=== PATIENT | female | born 1995 | race African-American/Black ===

== ENCOUNTER 2019-11-19 06:28 | Emergency (ER) | payer OTHER ==
[2019-11-19 07:25] LABS: ABSOLUTE EOSINOPHILS # (AUTO) 0.1 10^3/uL (0.0-0.6); ABSOLUTE MONOCYTES (AUTO) 0.5 10^3/uL (0.1-1.4); ABSOLUTE NEUT (AUTO) 5.5 10^3/uL (1.7-8.2); BASOPHILS % (AUTO) 0.3 % (0-2); EOSINOPHILS % (AUTO) 1.8 % (0-6); HEMATOCRIT 34.7 % (36.0-47.0); HEMOGLOBIN 11.6 g/dL (12.0-15.5); LYMPHOCYTES % (AUTO) 24.5 % (13-45); MEAN CORPUSCULAR HGB CONC 33.5 g/dL (32.0-36.0); MEAN CORPUSCULAR VOLUME 90 fl (80-97); MONOCYTES % (AUTO) 6.1 % (3-13); PLATELET COUNT 268 10^3/uL (150-450); RED BLOOD COUNT 3.88 10^6/uL (3.72-5.28); RED CELL DISTRIBUTION WIDTH 12.9 % (11.5-14.0); SEGMENTED NEUTROPHILS % (AUTO) 67.3 % (42-78); TOTAL CELLS COUNTED % (AUTO) 100 %; WHITE BLOOD COUNT 8.1 10^3/uL (4.0-10.5)
[2019-11-19 07:54] LABS: ALBUMIN 4.6 g/dL (3.5-5.0); ALKALINE PHOSPHATASE 54 U/L (38-126); ANION GAP 10 (5-19); ASPARTATE AMINO TRANSFERASE 20 U/L (14-36); BILIRUBIN,TOTAL 0.3 mg/dL (0.2-1.3); BLOOD UREA NITROGEN 5 mg/dL (7-20); CALCIUM 9.8 mg/dL (8.4-10.2); CARBON DIOXIDE 22 mmol/L (22-30); CHLORIDE 105 mmol/L (98-107); GLUCOSE 85 mg/dL (75-110); POTASSIUM 3.9 mmol/L (3.6-5.0); TOTAL PROTEIN 7.8 g/dL (6.3-8.2)
[2019-11-19] MEDS ORDERED: MECLIZINE HCL 25 MG TABLET PO ONE (08:15)
--- NOTE | 2019-11-19 08:29 | ER Document Report ---
Entered by ADOLFO LEYV SCRIBE 11/19/19 0754 Acting as scribe for:MARIEL STEWART MD ED General - General Chief Complaint: Syncope Stated Complaint: FALL-14 WEEKS PREG Time Seen by Provider: 11/19/19 07:32 Mode of Arrival: Ambulatory Information source: Patient Notes: This 24 year old female patient that is 14 weeks presents to the emergency department today with complaints of a dizzy spell prior to arrival. Patient states that she had a similar dizzy spell two days ago as well. Patient states today she was standing up and getting breakfast ready when this dizzy spell occurred. Patient states she sat down to the floor when this dizzy spell began. Patient states she went to the bathroom shortly after this dizzy spell today and she noticed some pink colored vaginal spotting. Patient denies fevers or cough. - Related Data Allergies/Adverse Reactions: No Known Allergies Allergy (Unverified 11/19/19 06:34) Home Medications: REGLAN. ZOFRAN Past Medical History - General Information source: Patient - Social History Smoking Status: Former Smoker Cigarette use (# per day): No Frequency of alcohol use: None Drug Abuse: None Lives with: Family Family History: Reviewed & Not Pertinent Patient has homicidal ideation: No - Medical History Medical History: Negative Surgical Hx: Negative Review of Systems - Review of Systems Constitutional: No symptoms reported EENT: No symptoms reported Cardiovascular: See HPI, Dizziness Respiratory: No symptoms reported Gastrointestinal: No symptoms reported Genitourinary: No symptoms reported Female Genitourinary: See HPI, , Vaginal bleeding Musculoskeletal: No symptoms reported Skin: No symptoms reported Hematologic/Lymphatic: No symptoms reported Neurological/Psychological: No symptoms reported -: Yes All other systems reviewed and negative Physical Exam - Vital signs Vitals: Temp 98.8 F 11/19/19 06:34 - Notes Notes: Physical Exam: General: Alert, appears well. HEENT: Normocephalic. Atraumatic. PERRL. Extraocular movements intact. Oropharynx clear. Lateral gaze nystagmus. Neck: Supple. Non-tender. Respiratory: No respiratory distress. Clear and equal breath sounds bilaterally. Cardiovascular: Regular rate and rhythm. Abdominal: Gravid female. Non-tender. No distension. Normal Bowel Sounds. Back: No gross abnormalities. Extremities: Moves all four extremities. Upper extremities: Normal inspection. Normal ROM. Lower extremities: Normal inspection. No edema. Normal ROM. Neurological: Normal cognition. AAOx4. Normal speech. Psychological: Normal affect. Normal Mood. Skin: Warm. Dry. Normal color. Course - Re-evaluation Re-evalutation: 11/19/19 09:32 Patient reports that her vertigo symptoms resolved completely and she feels much better at this time. Ultrasound shows a 15-week 5-day IUP with heart rate 169 and no abnormalities reported. - Vital Signs Vital signs: Temp Pulse Resp BP Pulse Ox 98.8 F 94 18 121/64 97 11/19/19 06:46 11/19/19 06:46 11/19/19 06:46 11/19/19 06:46 11/19/19 06:46 - Laboratory Result Diagrams: 11/19/19 07:15 11/19/19 07:15 Laboratory results interpreted by me: 11/19/19 11/19/19 07:15 07:15 Hgb 11.6 L Hct 34.7 L BUN 5 L Creatinine 0.43 L Beta HCG, Quant 64130.00 H - Diagnostic Test Radiology reviewed: Reports reviewed - ultrasound shows a 15-week 5-day intrauterine with heart rate 169 Discharge - Discharge Clinical Impression: Vertigo, with 15 completed weeks gestation Condition: Stable Disposition: HOME, SELF-CARE Additional Instructions: Vertigo You have experienced an episode of vertigo -- a whirling dizziness which may be accompanied by nausea and vomiting or staggering. Vertigo is often caused by an irritation of the inner ear, in which case it is called labyrinthitis. It can also be a symptom of a degenerating inner ear, nerve damage, or brain injury. Your physician has evaluated you to determine whether any further testing is necessary. Vertigo is often treated with dramamine or meclizine. These medications are helpful, but stronger medication may be needed if you are vomiting. Rest in bed. You should not drive or operate machinery until completely better. It may take one to three weeks for recovery. If there are new symptoms, such as decreased hearing or vision, severe headache, weakness or faintness, or confusion, call the physician. Take the medication as prescribed for the dizzy sensations. Drink plenty of fluids and get plenty of rest. Do not drive or engage in any activity that puts you or others at risk if you have severe dizziness return. Follow-up with your primary care provider if not improving over the next few days. See your [facility] doctor if you continue to have cramps or spotting. RETURN TO THE EMERGENCY ROOM IF ANY NEW OR WORSENING SYMPTOMS. Prescriptions: Meclizine HCl [Antivert 25 mg Tablet] 25 mg PO TID PRN #30 tablet PRN Reason: I personally performed the services described in the documentation, reviewed and edited the documentation which was dictated to the scribe in my presence, and it accurately records my words and actions.
[2019-11-19 08:46] LABS: APPEARANCE,URINE SLIGHTLY-CLOUDY; BILIRUBIN,URINE NEGATIVE (NEGATIVE); COLOR,URINE STRAW; GLUCOSE, URINE NEGATIVE (NEGATIVE); KETONES,URINE NEGATIVE (NEGATIVE); LEUKOCYTE ESTERASE,URINE NEGATIVE (NEGATIVE); NITRITE,URINE NEGATIVE (NEGATIVE); PROTEIN,URINE NEGATIVE (NEGATIVE); URINE SPECIFIC GRAVITY 1.004; UROBILINOGEN,URINE NEGATIVE mg/dL (<2.0)
--- NOTE | 2019-11-19 09:17 | RADIOLOGY REPORT (SQ) ---
EXAM DESCRIPTION: U/S OB 14+ TRNABD 1GES W/O DOP IMAGES COMPLETED DATE/TIME: 11/19/2019 9:05 am REASON FOR STUDY: 14wks, vertigo, sycope, spotting, cramps COMPARISON: None. TECHNIQUE: Limited transabdominal grayscale ultrasound for evaluation of specific requested obstetri ashutosh parameters. LIMITATIONS: None. FINDINGS: EGA: 15 weeks 5 days (concordant with EGA by LMP). CELINE: 05/07/2020. CERVICAL LENGTH: 3.3 cm. Closed. LVP: 6.1 x 2.3 cm. FHR: 169 beats per minute. PRESENTATION: Variable. PLACENTA: Posterior ANATOMY: Not assessed OTHER: No other findings. IMPRESSION: LIMITED OBSTETRICAL ULTRASOUND WITH MEASURED PARAMETERS DELINEATED ABOVE. Trimester of : Second trimester - 13 weeks 1 day to 27 weeks 6 days. TECHNICAL DOCUMENTATION: JOB ID: [id number] [employer]- All Rights Reserved Reading location - IP/workstation name: [email or web address]
[2019-11-19 09:54] VITALS: BP 110/67
== END 2019-11-19 09:54 | disposition home or self-care (01) ==
LOC: ER 06:28
DX: O26.892 Other specified pregnancy related conditions, second trimester (principal); R42 Dizziness and giddiness; Z3A.15 15 weeks gestation of pregnancy; Z87.891 Personal history of nicotine dependence; Z79.899 Other long term (current) drug therapy
CPT/HCPCS: 36415; 76805; 80053; 81001; 83690; 84702; 85025; 99284